=== PATIENT | male | born 1985 | race Caucasian/White ===

== ENCOUNTER 2018-09-06 15:13 | Emergency (ER) | payer SELFPAY ==
[~2018-09-06] VITALS: Ht 170.2 cm; Wt 95.3 kg
[2018-09-06 15:17] VITALS: BP 120/68; Ht 170.2 cm; Wt 95.3 kg
== END 2018-09-06 16:20 | disposition home or self-care (01) ==
LOC: ED 15:13
DX: S30.0XXA Contusion of lower back and pelvis, initial encounter (principal); V80.010A Animal-rider injured by fall from or being thrown from horse in noncollision accident, initial encounter; Y93.89 Activity, other specified; Y92.89 Other specified places as the place of occurrence of the external cause; Y99.8 Other external cause status
CPT/HCPCS: Q0092